=== PATIENT | female | born 1965 | race Caucasian/White ===

== ENCOUNTER 2018-11-28 15:19 | Emergency (ER) | payer MEDICAID, OTHER ==
[~2018-11-28] VITALS: Ht 167.6 cm; Wt 87.1 kg
[2018-11-28 16:44] VITALS: BP 169/85
[2018-11-28] MEDS ORDERED: methylPREDNISolone SOD SUCC 125 MG/2 ML VL IM ONE (17:15)
[2018-11-28] MEDS ORDERED: cefTRIAXone SOD 1,000 MG VL IM ONE (17:15)
== END 2018-11-28 18:18 | disposition home or self-care (01) ==
LOC: ER 15:28
DX: S76.011A Strain of muscle, fascia and tendon of right hip, initial encounter (principal); T78.40XA Allergy, unspecified, initial encounter; F17.210 Nicotine dependence, cigarettes, uncomplicated; X58.XXXA Exposure to other specified factors, initial encounter; W18.39XA Other fall on same level, initial encounter; Y93.89 Activity, other specified; Y99.8 Other external cause status; Y92.89 Other specified places as the place of occurrence of the external cause
CPT/HCPCS: 73502; 96372; 99283; J0696; J2930

== ENCOUNTER 2022-04-26 18:44 | Inpatient (IN) | payer MEDICAID ==
[~2022-04-26] VITALS: Ht 167.6 cm; Wt 77.1 kg
[2022-04-26] MEDS ORDERED: ASPirin 81 mg TAB PO ONE (19:15)
[2022-04-26] MEDS ORDERED: ONDANSETRON HCL 4 MG/2 ML VIAL IV ONE (19:15)
[2022-04-26] MEDS ORDERED: SODIUM CHLORIDE 0.9% 500 ML IV ONE (19:15)
[2022-04-26] MEDS: ALBUTEROL SULF 2.5 MG/0.5ML(0.5%) NEB SOLN HHN ONE ×2 (19:29→20:18)
[2022-04-26] MEDS: IPRATROPIUM BROM 0.5 MG/2.5ML INH SOL HHN ONE ×2 (19:29→20:18)
[2022-04-26] MEDS ORDERED: CLOPIDOGREL BISULFATE 75 MG TAB PO ONE (19:45)
[2022-04-26] MEDS ORDERED: CLOPIDOGREL 300 MG TAB ONE (19:48)
[2022-04-26 20:08] LABS: Basophils # (auto) 0.1 10 ^3/uL (0-0.2); Basophils % (auto) 0.5 % (0.0-2.0); Eosinophils # (auto) 0 10 ^3/uL (0-0.8); Eosinophils % (auto) 0.3 % (0.0-7.0); Hematocrit 50.6 % (36.0-46.0); Lymphocytes # (auto) 2.8 10 ^3/uL (0.4-5.4); Lymphocytes % (auto) 25.5 % (10.0-50.0); Mean Corpuscular Hemoglobin 31.9 pg (28.0-32.0); Mean Corpuscular Hgb Conc. 31.7 g/dL (32.0-36.0); Mean Corpuscular Volume 100.7 fL (80.0-100.0); Monocytes # (auto) 0.6 10 ^3/uL (0-1.3); Neutrophils # (auto) 7.6 10 ^3/uL (1.6-8.6); Neutrophils % (auto) 68.7 % (37.0-80.0); Red Blood Cells 5.03 10^6/uL (4.0-5.20); Red Cell Distribution Width 13.1 % (11.8-14.3); White Blood Cell 11.1 10^3/uL (4.4-10.8)
[2022-04-26] MEDS ORDERED: ANGIOMAX 250 MG VIAL IV ONE (20:09)
[2022-04-26] MEDS ORDERED: fentaNYL CITRATE 100 MCG/2 ML VL ONE (20:09)
[2022-04-26] MEDS ORDERED: SODIUM CHL 0.9% 50 ML ONE (20:09)
[2022-04-26] MEDS ORDERED: MIDAZOLAM HCL 2MG/2ML 2ml VIAL (1mg/ml) ONE ×2 (20:09→21:20)
[2022-04-26] MEDS ORDERED: IOHEXOL 350 MG/ML 100ML IJ ONE ×2 (20:10→21:10)
[2022-04-26] MEDS ORDERED: LIDOCAINE 2%HCL (LOCAL ANESTH.) INJ 20ML MDV ONE (20:10)
[2022-04-26] MEDS ORDERED: VERAPAMIL 2.5MG/ML INJ 2ML VIAL IV ONE (20:13)
[2022-04-26] MEDS ORDERED: HEPARIN SODIUM (PORCINE) 5000 UNITS/ML 1ML VIAL ONE (20:14)
[2022-04-26 20:15] LABS: Calcium 9.1 mg/dL (8.5-10.1); Potassium 4.7 mmol/L (3.5-5.1)
[2022-04-26 20:18] LABS: Lactic Acid w/Reflex 6.4 mmol/L (0.4-2.0)
[2022-04-26 20:23] LABS: Bilirubin, Total 1.2 mg/dL (0.2-1.0); INR 0.98 (0.9-1.15); Partial Thromboplastin Time 25.9 sec (24.6-33.4); Total Protein 6.2 g/dL (6.4-8.2)
[2022-04-26] MEDS ORDERED: PHENYLEPHRINE IV 250 ML IV ONE (20:40)
[2022-04-26] MEDS ORDERED: InsuLIN REG 1unit/0.01ml Soln (100units/ml) ONE (20:52)
[2022-04-26] MEDS ORDERED: SODIUM BICARBONATE 8.4 % INJ 50ML VIAL IV ONE (20:54)
[2022-04-26] MEDS ORDERED: MIDAZOLAM DRIP 50 mg/50mL 50 ML IV ONE (21:03)
[2022-04-26] MEDS ORDERED: fentaNYL Drip 2500mCg/250mlNS 250 ML IV ONE (21:06)
[2022-04-26] MEDS: HEPARIN DRIP/D5W 100UNITS/ML 250 ML IV SCH (21:30)
[2022-04-26] MEDS ORDERED: ONDANSETRON HCL 4 MG/2 ML VIAL IV PRN (21:30)
[2022-04-26] MEDS ORDERED: DEXTROSE (50%) 50ML SYRG IV PRN ×2 (21:30→22:00)
[2022-04-26] MEDS ORDERED: TEMAZEPAM 15 MG CAP PO PRN (21:30)
[2022-04-26] MEDS ORDERED: DOCUSATE SOD 100 MG CAP PO PRN (21:30)
[2022-04-26] MEDS ORDERED: VANCOMYCIN 1GM/250ML 250 ML IV ONE (21:34)
[2022-04-26] MEDS ORDERED: NITROGLYCERIN 0.4 MG SL TAB SL PRN (22:00)
[2022-04-26] MEDS ORDERED: InsuLIN REG 1unit/0.01ml Soln (100units/ml) SC SCH (22:00)
[2022-04-26] MEDS: FAMOTIDINE (10MG/ML) 2ML VL IV SCH (22:00)
[2022-04-26] MEDS ORDERED: MORPHINE SULFATE INJ 2 MG/ml SYRG IV PRN (22:00)
[2022-04-26 22:51] VITALS: BP 72/44
[2022-04-26] MEDS ORDERED: VASOPRESSIN 20 UNIT/ML ONE (23:11)
[2022-04-26 23:29] LABS: Basophils # (auto) 0 10 ^3/uL (0-0.2); Basophils % (auto) 0.2 % (0.0-2.0); Eosinophils # (auto) 0 10 ^3/uL (0-0.8); Hematocrit 48.1 % (36.0-46.0); Hemoglobin 15.3 g/dL (12.2-16.2); Lymphocytes # (auto) 1.8 10 ^3/uL (0.4-5.4); Lymphocytes % (auto) 10.9 % (10.0-50.0); Mean Corpuscular Hemoglobin 31.8 pg (28.0-32.0); Mean Corpuscular Hgb Conc. 31.8 g/dL (32.0-36.0); Mean Corpuscular Volume 100.1 fL (80.0-100.0); Monocytes # (auto) 0.8 10 ^3/uL (0-1.3); Monocytes % (auto) 4.8 % (0.0-12.0); Neutrophils # (auto) 14.1 10 ^3/uL (1.6-8.6); Neutrophils % (auto) 84.1 % (37.0-80.0); Nucleated Red Blood Cells % 0.1 %; Red Blood Cells 4.81 10^6/uL (4.0-5.20); Red Cell Distribution Width 13.1 % (11.8-14.3); White Blood Cell 16.8 10^3/uL (4.4-10.8)
[2022-04-27] VITALS (103 sets, daily range): BP systolic 76–121; BP diastolic 53–92
[2022-04-27] MEDS ORDERED: InsuLIN REG 1unit/0.01ml Soln (100units/ml) SC SCH
[2022-04-27] MEDS ORDERED: ACCU-CHEK COMFORT CURVE STRIP VI SCH ×2
[2022-04-27] MEDS ORDERED: InsuLIN R (HUMAN) 100 UNITS in SODIUM CHL 0.9% 99 ML IV SCH ×2
[2022-04-27 00:02] LABS: INR 3.4 (0.9-1.15)
[2022-04-27 00:14] LABS: Partial Thromboplastin Time 129.1 sec (24.6-33.4)
[2022-04-27] MEDS: SODIUM CHLORIDE 0.9% 1,000 ML IV SCH ×2 (00:51→18:50)
[2022-04-27] MEDS: ALBUMIN 25% 100 ML IV SCH ×3 (01:17→13:33)
[2022-04-27] MEDS: fentaNYL Drip 2500mCg/250mlNS 250 ML IV SCH (01:19)
[2022-04-27] MEDS: MIDAZOLAM DRIP 50 mg/50mL 50 ML IV SCH ×2 (01:21→22:00)
[2022-04-27] MEDS: PHENYLEPHRINE IV 250 ML IV SCH ×3 (01:21→14:40)
[2022-04-27] MEDS: ACCU-CHEK COMFORT CURVE STRIP VI SCH ×11 (01:24→20:14)
[2022-04-27] MEDS ORDERED: DEXTROSE (50%) 50ML SYRG IV PRN ×3 (02:00→14:15)
[2022-04-27] MEDS: NOREPINEPHRINE 8 MG/250ML KIT 250 ML IV SCH (02:21)
[2022-04-27] MEDS: InsuLIN R (HUMAN) 100 UNITS in SODIUM CHL 0.9% 99 ML IV SCH ×2 (02:25→09:07)
[2022-04-27 04:55] LABS: Basophils # (auto) 0 10 ^3/uL (0-0.2); Basophils % (auto) 0.3 % (0.0-2.0); Eosinophils # (auto) 0 10 ^3/uL (0-0.8); Eosinophils % (auto) 0.1 % (0.0-7.0); Hematocrit 45.9 % (36.0-46.0); Lymphocytes # (auto) 1.2 10 ^3/uL (0.4-5.4); Lymphocytes % (auto) 8.8 % (10.0-50.0); Mean Corpuscular Hemoglobin 31.8 pg (28.0-32.0); Mean Corpuscular Hgb Conc. 32.6 g/dL (32.0-36.0); Mean Corpuscular Volume 97.5 fL (80.0-100.0); Monocytes # (auto) 0.6 10 ^3/uL (0-1.3); Monocytes % (auto) 4.4 % (0.0-12.0); Neutrophils # (auto) 11.8 10 ^3/uL (1.6-8.6); Neutrophils % (auto) 86.4 % (37.0-80.0); Nucleated Red Blood Cells % 0.1 %; Red Blood Cells 4.71 10^6/uL (4.0-5.20); Red Cell Distribution Width 12.8 % (11.8-14.3); White Blood Cell 13.7 10^3/uL (4.4-10.8)
[2022-04-27 05:11] LABS: Albumin 3.1 g/dL (3.4-5.0); Calcium 7.4 mg/dL (8.5-10.1); Potassium 3.6 mmol/L (3.5-5.1)
[2022-04-27 05:12] LABS: INR 1.46 (0.9-1.15); Partial Thromboplastin Time 51.3 sec (24.6-33.4)
[2022-04-27 05:20] LABS: Bilirubin, Total 1.7 mg/dL (0.2-1.0); Total Protein 5.5 g/dL (6.4-8.2)
[2022-04-27] MEDS: HEPARIN DRIP/D5W 100UNITS/ML 250 ML IV SCH (05:50)
[2022-04-27] MEDS ORDERED: IPRATROPIUM BROM 0.5 MG/2.5ML INH SOL ONE (06:12)
[2022-04-27] MEDS ORDERED: ALBUTEROL SULF 2.5 MG/0.5ML(0.5%) NEB SOLN ONE (06:12)
[2022-04-27] MEDS: ASPirin 81 mg TAB PO SCH (09:41)
[2022-04-27] MEDS: FAMOTIDINE (10MG/ML) 2ML VL IV SCH (09:41)
[2022-04-27] MEDS ORDERED: PANTOPRAZOLE 40 MG/10 ML VIAL INJ IV ONE (10:00)
[2022-04-27] MEDS ORDERED: CLOPIDOGREL BISULFATE 75 MG TAB PO ONE (10:00)
[2022-04-27] MEDS ORDERED: OPTISON 3ml Vial for INJ IV ONE (10:57)
[2022-04-27 11:00] LABS: Basophils # (auto) 0 10 ^3/uL (0-0.2); Basophils % (auto) 0.3 % (0.0-2.0); Eosinophils # (auto) 0 10 ^3/uL (0-0.8); Eosinophils % (auto) 0.1 % (0.0-7.0); Hematocrit 42.4 % (36.0-46.0); Hemoglobin 13.9 g/dL (12.2-16.2); Lymphocytes # (auto) 2.3 10 ^3/uL (0.4-5.4); Lymphocytes % (auto) 18.7 % (10.0-50.0); Mean Corpuscular Hemoglobin 31.4 pg (28.0-32.0); Mean Corpuscular Hgb Conc. 32.9 g/dL (32.0-36.0); Mean Corpuscular Volume 95.5 fL (80.0-100.0); Monocytes # (auto) 1.1 10 ^3/uL (0-1.3); Monocytes % (auto) 9.5 % (0.0-12.0); Neutrophils # (auto) 8.7 10 ^3/uL (1.6-8.6); Neutrophils % (auto) 71.4 % (37.0-80.0); Red Blood Cells 4.44 10^6/uL (4.0-5.20); Red Cell Distribution Width 12.6 % (11.8-14.3); White Blood Cell 12.1 10^3/uL (4.4-10.8)
[2022-04-27] MEDS ORDERED: INSULIN LANTUS (GLARGINE) 1 /0.01ml (100units/ml) SC ONE (11:45)
[2022-04-27] MEDS ORDERED: EPINEPHrine HCL 1 MG/10 ML SYRG IV ONE (12:44)
[2022-04-27] MEDS ORDERED: ATROPINE SULF 1 MG/10ml SYR IV ONE (12:46)
[2022-04-27] MEDS ORDERED: SODIUM BICARBONATE 8.4% INJ 50ML SYRINGE IV ONE (12:56)
[2022-04-27 13:14] LABS: INR 1.42 (0.9-1.15); Partial Thromboplastin Time 54.6 sec (24.6-33.4)
[2022-04-27 15:54] LABS: Alcohol, Urine < 3.0 mg/dL (0-10); Amphetamine Screen, Urine POSITIVE (NEGATIVE); Barbiturate Scree,Urine NEGATIVE (NEGATIVE); Benzodiazephine Screen, Urine POSITIVE (NEGATIVE); Cannabinoid Screen, Urine NEGATIVE (NEGATIVE); Cocaine Screen, Urine NEGATIVE (NEGATIVE); Opiate Scree,Urine NEGATIVE (NEGATIVE); Phencyclidine Screen, Urine NEGATIVE (NEGATIVE)
[2022-04-27] MEDS: InsuLIN REG 1unit/0.01ml Soln (100units/ml) SC SCH ×2 (16:21→20:00)
[2022-04-27 18:59] LABS: INR 1.5 (0.9-1.15)
[2022-04-27] MEDS ORDERED: VANCOMYCIN PER PHARMACY 0 MG IV SCH (20:45)
[2022-04-27] MEDS ORDERED: VANCOMYCIN 1GM/250ML 250 ML IV ONE (21:00)
[2022-04-27] MEDS ORDERED: cefTRIAXone 1GM/50ML D5W 50 ML IV ONE (21:00)
[2022-04-28] VITALS (105 sets, daily range): BP systolic 92–126; BP diastolic 61–77
[2022-04-28] MEDS: ACCU-CHEK COMFORT CURVE STRIP VI SCH ×6 (00:23→20:00)
[2022-04-28] MEDS: InsuLIN REG 1unit/0.01ml Soln (100units/ml) SC SCH ×6 (00:30→20:57)
[2022-04-28 01:01] LABS: INR 1.46 (0.9-1.15); Partial Thromboplastin Time 53.2 sec (24.6-33.4)
[2022-04-28] MEDS: NOREPINEPHRINE 8 MG/250ML KIT 250 ML IV SCH (03:50)
[2022-04-28 04:22] LABS: Basophils # (auto) 0.1 10 ^3/uL (0-0.2); Basophils % (auto) 0.6 % (0.0-2.0); Eosinophils # (auto) 0 10 ^3/uL (0-0.8); Eosinophils % (auto) 0.2 % (0.0-7.0); Hematocrit 36.9 % (36.0-46.0); Hemoglobin 12.3 g/dL (12.2-16.2); Lymphocytes # (auto) 2.4 10 ^3/uL (0.4-5.4); Lymphocytes % (auto) 23.9 % (10.0-50.0); Mean Corpuscular Hemoglobin 31.8 pg (28.0-32.0); Mean Corpuscular Hgb Conc. 33.2 g/dL (32.0-36.0); Mean Corpuscular Volume 95.7 fL (80.0-100.0); Monocytes # (auto) 0.5 10 ^3/uL (0-1.3); Monocytes % (auto) 5.3 % (0.0-12.0); Neutrophils # (auto) 6.9 10 ^3/uL (1.6-8.6); Nucleated Red Blood Cells % 0.4 %; Red Blood Cells 3.86 10^6/uL (4.0-5.20); Red Cell Distribution Width 12.7 % (11.8-14.3); White Blood Cell 9.9 10^3/uL (4.4-10.8)
[2022-04-28 04:43] LABS: Albumin 3.3 g/dL (3.4-5.0); Anion Gap 11 (5-15); BUN/Creatinine Ratio 10.2; Blood Urea Nitrogen 25 mg/dL (7-18); Calcium 7.6 mg/dL (8.5-10.1); Carbon Dioxide 23 mmol/L (21-32); Chloride 107 mmol/L (98-107); GFR African American 26 mL/min; GFR Non-African American 21 mL/min; Glucose 214 mg/dL (74-106); Potassium 3.8 mmol/L (3.5-5.1); Sodium 141 mmol/L (136-145)
[2022-04-28 04:52] LABS: Alkaline Phosphatase 111 U/L (45-117); Bilirubin, Total 1.5 mg/dL (0.2-1.0); Total Protein 5.6 g/dL (6.4-8.2)
[2022-04-28 05:17] LABS: Alanine Aminotransferase 4968 U/L (13-56)
[2022-04-28 05:50] LABS: Aspartate Aminotransferase > 2002 U/L (15-37)
[2022-04-28] MEDS: SODIUM CHLORIDE 0.9% 1,000 ML IV SCH ×2 (07:08→08:00)
[2022-04-28] MEDS: PHENYLEPHRINE IV 250 ML IV SCH ×2 (07:20→15:40)
[2022-04-28] MEDS: HEPARIN DRIP/D5W 100UNITS/ML 250 ML IV SCH (07:37)
[2022-04-28 08:27] LABS: INR 1.46 (0.9-1.15); Partial Thromboplastin Time 52.7 sec (24.6-33.4)
[2022-04-28] MEDS: ASPirin 81 mg TAB PO SCH (10:00)
[2022-04-28] MEDS: FAMOTIDINE (10MG/ML) 2ML VL IV SCH (10:21)
[2022-04-28] MEDS: cefTRIAXone 1GM/50ML D5W 50 ML IV SCH (10:21)
[2022-04-28] MEDS: INSULIN LANTUS (GLARGINE) 1 /0.01ml (100units/ml) SC SCH (10:23)
[2022-04-28] MEDS ORDERED: VANCOMYCIN 1GM/250ML 250 ML IV ONE (12:00)
[2022-04-28 14:43] LABS: INR 1.51 (0.9-1.15); Partial Thromboplastin Time 63.9 sec (24.6-33.4)
[2022-04-28] MEDS ORDERED: BUMETANIDE 2.5mg/10ml (0.25 mg/ml) INJ IV ONE (16:00)
[2022-04-28] MEDS: SOD CHL 0.45% 1,000 ML IV SCH (16:55)
[2022-04-28] MEDS: fentaNYL Drip 2500mCg/250mlNS 250 ML IV SCH (22:00)
[2022-04-29] VITALS (106 sets, daily range): BP systolic 88–126; BP diastolic 56–82
[2022-04-29] MEDS: fentaNYL Drip 2500mCg/250mlNS 250 ML IV SCH ×2 (00:56→22:00)
[2022-04-29] MEDS: InsuLIN REG 1unit/0.01ml Soln (100units/ml) SC SCH ×6 (00:58→20:00)
[2022-04-29] MEDS: NOREPINEPHRINE 8 MG/250ML KIT 250 ML IV SCH (01:00)
[2022-04-29] MEDS: ACCU-CHEK COMFORT CURVE STRIP VI SCH ×6 (04:20→20:38)
[2022-04-29] MEDS: SOD CHL 0.45% 1,000 ML IV SCH ×2 (04:22→17:02)
[2022-04-29 05:27] LABS: Albumin 3.1 g/dL (3.4-5.0); BUN/Creatinine Ratio 13.4; Calcium 7.7 mg/dL (8.5-10.1); Phosphorus 4.3 mg/dL (2.5-4.90); Potassium 3.2 mmol/L (3.5-5.1)
[2022-04-29 05:51] LABS: INR 1.43 (0.9-1.15); Partial Thromboplastin Time 40.2 sec (24.6-33.4)
[2022-04-29] MEDS ORDERED: HEPARIN DRIP/D5W 100UNITS/ML 250 ML IV SCH (06:30)
[2022-04-29] MEDS: HEPARIN DRIP/D5W 100UNITS/ML 250 ML IV SCH (06:34)
[2022-04-29 07:38] LABS: Basophils # (auto) 0.1 10 ^3/uL (0-0.2); Basophils % (auto) 0.7 % (0.0-2.0); Eosinophils # (auto) 0 10 ^3/uL (0-0.8); Eosinophils % (auto) 0.4 % (0.0-7.0); Hematocrit 40.1 % (36.0-46.0); Hemoglobin 13.7 g/dL (12.2-16.2); Lymphocytes # (auto) 1.4 10 ^3/uL (0.4-5.4); Lymphocytes % (auto) 16.6 % (10.0-50.0); Mean Corpuscular Hemoglobin 32.6 pg (28.0-32.0); Mean Corpuscular Hgb Conc. 34.2 g/dL (32.0-36.0); Mean Corpuscular Volume 95.2 fL (80.0-100.0); Monocytes # (auto) 0.3 10 ^3/uL (0-1.3); Monocytes % (auto) 3.3 % (0.0-12.0); Neutrophils # (auto) 6.5 10 ^3/uL (1.6-8.6); Nucleated Red Blood Cells % 1.9 %; Red Blood Cells 4.21 10^6/uL (4.0-5.20); Red Cell Distribution Width 12.9 % (11.8-14.3); White Blood Cell 8.2 10^3/uL (4.4-10.8)
[2022-04-29] MEDS: PHENYLEPHRINE IV 250 ML IV SCH ×3 (08:20→16:40)
[2022-04-29] MEDS: cefTRIAXone 1GM/50ML D5W 50 ML IV SCH (08:32)
[2022-04-29] MEDS: ASPirin 81 mg TAB PO SCH (08:33)
[2022-04-29] MEDS: POTASSIUM CHL 20MEQ/100ML 100 ML IV SCH ×2 (08:33→10:45)
[2022-04-29] MEDS: FAMOTIDINE (10MG/ML) 2ML VL IV SCH (08:33)
[2022-04-29] MEDS: INSULIN LANTUS (GLARGINE) 1 /0.01ml (100units/ml) SC SCH (09:39)
[2022-04-29] MEDS ORDERED: ACETAMINOPHEN 650 mg PER 20.3 mL UD GT PRN (12:00)
[2022-04-29 12:22] LABS: INR 1.52 (0.9-1.15); Partial Thromboplastin Time 59.9 sec (24.6-33.4)
[2022-04-29] MEDS: IBUPROFEN 800 MG TAB PO PRN (13:22)
[2022-04-29] MEDS ORDERED: VANCOMYCIN 1GM/250ML 250 ML IV ONE (15:00)
[2022-04-29] MEDS ORDERED: VANCOMYCIN 500MG/100ML D5W 100 ML IV SCH (15:00)
[2022-04-29] MEDS ORDERED: VANCOMYCIN 500MG/100ML D5W 100 ML IV ONE (15:15)
[2022-04-29 18:52] LABS: INR 1.55 (0.9-1.15)
[2022-04-29 19:04] LABS: Partial Thromboplastin Time 74.2 sec (24.6-33.4)
[2022-04-29] MEDS: MIDAZOLAM DRIP 50 mg/50mL 50 ML IV SCH ×2 (22:00)
[2022-04-30] VITALS (106 sets, daily range): BP systolic 101–127; BP diastolic 61–86
[2022-04-30] MEDS: NOREPINEPHRINE 8 MG/250ML KIT 250 ML IV SCH
[2022-04-30] MEDS: SOD CHL 0.45% 1,000 ML IV SCH ×2 (00:02→16:35)
[2022-04-30] MEDS: ACCU-CHEK COMFORT CURVE STRIP VI SCH ×7 (00:03→23:47)
[2022-04-30 00:59] LABS: INR 1.44 (0.9-1.15); Partial Thromboplastin Time 67.6 sec (24.6-33.4)
[2022-04-30] MEDS: PHENYLEPHRINE IV 250 ML IV SCH ×3 (01:00→16:35)
[2022-04-30 04:09] LABS: Basophils # (auto) 0.1 10 ^3/uL (0-0.2); Basophils % (auto) 0.7 % (0.0-2.0); Eosinophils # (auto) 0.1 10 ^3/uL (0-0.8); Eosinophils % (auto) 1.2 % (0.0-7.0); Hematocrit 38.6 % (36.0-46.0); Hemoglobin 13.3 g/dL (12.2-16.2); Lymphocytes # (auto) 1.4 10 ^3/uL (0.4-5.4); Lymphocytes % (auto) 15.6 % (10.0-50.0); Mean Corpuscular Hemoglobin 32.9 pg (28.0-32.0); Mean Corpuscular Hgb Conc. 34.5 g/dL (32.0-36.0); Mean Corpuscular Volume 95.3 fL (80.0-100.0); Monocytes # (auto) 0.6 10 ^3/uL (0-1.3); Monocytes % (auto) 6.3 % (0.0-12.0); Neutrophils # (auto) 6.9 10 ^3/uL (1.6-8.6); Neutrophils % (auto) 76.2 % (37.0-80.0); Nucleated Red Blood Cells % 1.5 %; Red Blood Cells 4.05 10^6/uL (4.0-5.20); Red Cell Distribution Width 12.9 % (11.8-14.3); White Blood Cell 9.1 10^3/uL (4.4-10.8)
[2022-04-30 04:29] LABS: Albumin 2.7 g/dL (3.4-5.0); BUN/Creatinine Ratio 19.9; Calcium 7.4 mg/dL (8.5-10.1); Phosphorus 3.8 mg/dL (2.5-4.90); Potassium 3.3 mmol/L (3.5-5.1)
[2022-04-30] MEDS: InsuLIN REG 1unit/0.01ml Soln (100units/ml) SC SCH ×7 (04:38→23:48)
[2022-04-30] MEDS: cefTRIAXone 1GM/50ML D5W 50 ML IV SCH (09:01)
[2022-04-30] MEDS: FAMOTIDINE (10MG/ML) 2ML VL IV SCH (09:01)
[2022-04-30] MEDS: ASPirin 81 mg TAB PO SCH (09:01)
[2022-04-30] MEDS: INSULIN LANTUS (GLARGINE) 1 /0.01ml (100units/ml) SC SCH (09:02)
[2022-04-30] MEDS: VANCOMYCIN 1GM/250ML 250 ML IV SCH (12:38)
[2022-04-30] MEDS ORDERED: CLOPIDOGREL 300 MG TAB PO ONE (13:30)
[2022-04-30] MEDS ORDERED: ALBUMIN 25% 50 ML IV ONE (17:30)
[2022-04-30] MEDS: POTASSIUM CHL 20MEQ/100ML 100 ML IV SCH ×2 (18:29→22:36)
[2022-04-30] MEDS ORDERED: FUROSEMIDE 20 MG/2 ML VIAL IV ONE (18:30)
[2022-04-30 20:39] LABS: Hepatitis A Ab IgM Negative; Hepatitis B Core IgM Negative; Hepatitis C Antibody Negative (Negative)
[2022-04-30] MEDS: MIDAZOLAM DRIP 50 mg/50mL 50 ML IV SCH (22:00)
[2022-04-30] MEDS: fentaNYL Drip 2500mCg/250mlNS 250 ML IV SCH (22:00)
[2022-05-01] VITALS (103 sets, daily range): BP systolic 80–158; BP diastolic 51–99
[2022-05-01] MEDS: NOREPINEPHRINE 8 MG/250ML KIT 250 ML IV SCH
[2022-05-01] MEDS: fentaNYL Drip 2500mCg/250mlNS 250 ML IV SCH (01:06)
[2022-05-01] MEDS: PHENYLEPHRINE IV 250 ML IV SCH ×3 (02:00→16:12)
[2022-05-01 03:46] LABS: Basophils # (auto) 0.1 10 ^3/uL (0-0.2); Basophils % (auto) 0.9 % (0.0-2.0); Eosinophils # (auto) 0.1 10 ^3/uL (0-0.8); Eosinophils % (auto) 1.3 % (0.0-7.0); Hematocrit 37.7 % (36.0-46.0); Hemoglobin 12.7 g/dL (12.2-16.2); Lymphocytes # (auto) 1.1 10 ^3/uL (0.4-5.4); Lymphocytes % (auto) 14.1 % (10.0-50.0); Mean Corpuscular Hemoglobin 32.1 pg (28.0-32.0); Mean Corpuscular Hgb Conc. 33.6 g/dL (32.0-36.0); Mean Corpuscular Volume 95.4 fL (80.0-100.0); Monocytes # (auto) 0.8 10 ^3/uL (0-1.3); Monocytes % (auto) 10.9 % (0.0-12.0); Neutrophils # (auto) 5.4 10 ^3/uL (1.6-8.6); Neutrophils % (auto) 72.8 % (37.0-80.0); Nucleated Red Blood Cells % 1.5 %; Red Blood Cells 3.95 10^6/uL (4.0-5.20); Red Cell Distribution Width 12.8 % (11.8-14.3); White Blood Cell 7.5 10^3/uL (4.4-10.8)
[2022-05-01] MEDS: InsuLIN REG 1unit/0.01ml Soln (100units/ml) SC SCH ×5 (04:00→20:00)
[2022-05-01 04:04] LABS: Calcium 8.3 mg/dL (8.5-10.1); Magnesium 2.1 mg/dL (1.6-2.6); Potassium 3.6 mmol/L (3.5-5.1)
[2022-05-01 04:07] LABS: BUN/Creatinine Ratio 23.9
[2022-05-01 04:08] LABS: INR 1.28 (0.9-1.15); Partial Thromboplastin Time 34.2 sec (24.6-33.4)
[2022-05-01] MEDS: ACCU-CHEK COMFORT CURVE STRIP VI SCH ×5 (04:32→20:00)
[2022-05-01] MEDS: SOD CHL 0.45% 1,000 ML IV SCH (06:09)
[2022-05-01] MEDS: cefTRIAXone 1GM/50ML D5W 50 ML IV SCH (08:32)
[2022-05-01] MEDS: FAMOTIDINE (10MG/ML) 2ML VL IV SCH (09:23)
[2022-05-01] MEDS: ASPirin 81 mg TAB PO SCH (09:23)
[2022-05-01] MEDS: CLOPIDOGREL BISULFATE 75 MG TAB PO SCH (09:23)
[2022-05-01] MEDS: ENOXAPARIN SOD 30 MG/0.3 ML SYRINGE SC SCH (09:24)
[2022-05-01] MEDS: INSULIN LANTUS (GLARGINE) 1 /0.01ml (100units/ml) SC SCH (09:26)
[2022-05-01] MEDS: VANCOMYCIN 1GM/250ML 250 ML IV SCH (12:29)
[2022-05-01] MEDS: MIDAZOLAM DRIP 50 mg/50mL 50 ML IV SCH (22:00)
[2022-05-02] VITALS (65 sets, daily range): BP systolic 89–140; BP diastolic 7–86
[2022-05-02] MEDS: NOREPINEPHRINE 8 MG/250ML KIT 250 ML IV SCH
[2022-05-02] MEDS: ACCU-CHEK COMFORT CURVE STRIP VI SCH ×6 (00:02→20:00)
[2022-05-02] MEDS: MIDAZOLAM DRIP 50 mg/50mL 50 ML IV SCH ×3 (00:03→05:44)
[2022-05-02] MEDS: fentaNYL Drip 2500mCg/250mlNS 250 ML IV SCH (01:18)
[2022-05-02] MEDS: PHENYLEPHRINE IV 250 ML IV SCH ×2 (03:00→11:20)
[2022-05-02] MEDS: InsuLIN REG 1unit/0.01ml Soln (100units/ml) SC SCH ×6 (04:00→20:00)
[2022-05-02 04:08] LABS: Basophils # (auto) 0.1 10 ^3/uL (0-0.2); Basophils % (auto) 0.6 % (0.0-2.0); Eosinophils # (auto) 0.1 10 ^3/uL (0-0.8); Eosinophils % (auto) 0.9 % (0.0-7.0); Hematocrit 38.1 % (36.0-46.0); Hemoglobin 12.8 g/dL (12.2-16.2); Lymphocytes # (auto) 1.5 10 ^3/uL (0.4-5.4); Lymphocytes % (auto) 18.3 % (10.0-50.0); Mean Corpuscular Hemoglobin 32.2 pg (28.0-32.0); Mean Corpuscular Hgb Conc. 33.7 g/dL (32.0-36.0); Mean Corpuscular Volume 95.7 fL (80.0-100.0); Monocytes # (auto) 1.1 10 ^3/uL (0-1.3); Monocytes % (auto) 12.8 % (0.0-12.0); Neutrophils # (auto) 5.7 10 ^3/uL (1.6-8.6); Neutrophils % (auto) 67.4 % (37.0-80.0); Nucleated Red Blood Cells % 0.6 %; Red Blood Cells 3.99 10^6/uL (4.0-5.20); Red Cell Distribution Width 12.7 % (11.8-14.3); White Blood Cell 8.4 10^3/uL (4.4-10.8)
[2022-05-02 04:21] LABS: BUN/Creatinine Ratio 31.2; Calcium 8.2 mg/dL (8.5-10.1); Potassium 3.6 mmol/L (3.5-5.1)
[2022-05-02] MEDS: FAMOTIDINE (10MG/ML) 2ML VL IV SCH (09:23)
[2022-05-02] MEDS: ENOXAPARIN SOD 30 MG/0.3 ML SYRINGE SC SCH (09:23)
[2022-05-02] MEDS: cefTRIAXone 1GM/50ML D5W 50 ML IV SCH (09:23)
[2022-05-02] MEDS: INSULIN LANTUS (GLARGINE) 1 /0.01ml (100units/ml) SC SCH (09:24)
[2022-05-02] MEDS: CLOPIDOGREL BISULFATE 75 MG TAB PO SCH (10:00)
[2022-05-02] MEDS: ASPirin 81 mg TAB PO SCH (10:00)
[2022-05-02] MEDS: VANCOMYCIN 1GM/250ML 250 ML IV SCH (11:58)
[2022-05-03] MEDS: ACCU-CHEK COMFORT CURVE STRIP VI SCH ×6 (04:00→21:50)
[2022-05-03] MEDS: InsuLIN REG 1unit/0.01ml Soln (100units/ml) SC SCH ×6 (04:44→21:50)
[2022-05-03 05:00] VITALS: BP 131/93
[2022-05-03] MEDS: MORPHINE SULFATE INJ 2 MG/ml SYRG IV PRN ×2 (05:53→21:34)
[2022-05-03 06:05] LABS: Basophils # (auto) 0.1 10 ^3/uL (0-0.2); Basophils % (auto) 0.5 % (0.0-2.0); Eosinophils # (auto) 0.1 10 ^3/uL (0-0.8); Eosinophils % (auto) 0.6 % (0.0-7.0); Hematocrit 42.5 % (36.0-46.0); Hemoglobin 13.8 g/dL (12.2-16.2); Lymphocytes # (auto) 1.2 10 ^3/uL (0.4-5.4); Lymphocytes % (auto) 9.4 % (10.0-50.0); Mean Corpuscular Hemoglobin 31.5 pg (28.0-32.0); Mean Corpuscular Hgb Conc. 32.6 g/dL (32.0-36.0); Mean Corpuscular Volume 96.8 fL (80.0-100.0); Monocytes # (auto) 1.8 10 ^3/uL (0-1.3); Monocytes % (auto) 13.7 % (0.0-12.0); Neutrophils # (auto) 9.7 10 ^3/uL (1.6-8.6); Neutrophils % (auto) 75.8 % (37.0-80.0); Nucleated Red Blood Cells % 0.1 %; Red Blood Cells 4.39 10^6/uL (4.0-5.20); White Blood Cell 12.8 10^3/uL (4.4-10.8)
[2022-05-03 06:23] LABS: Calcium 9.2 mg/dL (8.5-10.1); Potassium 3.6 mmol/L (3.5-5.1)
[2022-05-03 08:52] VITALS: BP 139/91
[2022-05-03] MEDS: ASPirin 81 mg TAB PO SCH (11:06)
[2022-05-03] MEDS: chlordiazePOXIDE HCL 25 MG CAP PO SCH ×2 (11:06→17:21)
[2022-05-03] MEDS: CLOPIDOGREL BISULFATE 75 MG TAB PO SCH (11:07)
[2022-05-03] MEDS: LORazepam 0.5 MG TAB PO PRN ×2 (11:07→20:57)
[2022-05-03] MEDS: ENOXAPARIN SOD 40 MG/0.4 ML SYRINGE SC SCH (11:08)
[2022-05-03] MEDS: INSULIN LANTUS (GLARGINE) 1 /0.01ml (100units/ml) SC SCH (11:20)
[2022-05-03] MEDS: FAMOTIDINE (10MG/ML) 2ML VL IV SCH (12:20)
[2022-05-03] MEDS: cefTRIAXone 1GM/50ML D5W 50 ML IV SCH (12:25)
[2022-05-03 13:00] VITALS: BP 134/89
[2022-05-03] MEDS ORDERED: InsuLIN REG 1unit/0.01ml Soln (100units/ml) SC SCH ×3 (17:00→22:00)
[2022-05-03 17:06] VITALS: BP 131/90
[2022-05-03] MEDS ORDERED: D5W 5% 1,000 ML IV SCH (18:15)
[2022-05-03 22:00] VITALS: BP 143/77
[2022-05-04] MEDS: chlordiazePOXIDE HCL 25 MG CAP PO SCH ×4 (00:21→18:00)
[2022-05-04 05:00] VITALS: BP 115/69
[2022-05-04 06:07] LABS: Basophils # (auto) 0.1 10 ^3/uL (0-0.2); Basophils % (auto) 0.7 % (0.0-2.0); Eosinophils # (auto) 0.1 10 ^3/uL (0-0.8); Eosinophils % (auto) 1.7 % (0.0-7.0); Hematocrit 38.5 % (36.0-46.0); Lymphocytes # (auto) 1.3 10 ^3/uL (0.4-5.4); Lymphocytes % (auto) 14.7 % (10.0-50.0); Mean Corpuscular Hemoglobin 32.3 pg (28.0-32.0); Mean Corpuscular Hgb Conc. 33.7 g/dL (32.0-36.0); Monocytes # (auto) 1.2 10 ^3/uL (0-1.3); Neutrophils # (auto) 6.2 10 ^3/uL (1.6-8.6); Neutrophils % (auto) 69.9 % (37.0-80.0); Nucleated Red Blood Cells % 0.1 %; Red Blood Cells 4.01 10^6/uL (4.0-5.20); Red Cell Distribution Width 13.3 % (11.8-14.3); White Blood Cell 8.9 10^3/uL (4.4-10.8)
[2022-05-04 06:24] LABS: Calcium 8.8 mg/dL (8.5-10.1)
[2022-05-04 06:26] LABS: BUN/Creatinine Ratio 27.9
[2022-05-04 06:31] LABS: Potassium 2.9 mmol/L (3.5-5.1)
[2022-05-04] MEDS: InsuLIN REG 1unit/0.01ml Soln (100units/ml) SC SCH ×4 (07:00→22:00)
[2022-05-04] MEDS ORDERED: POTASSIUM CHL 20MEQ/100ML 100 ML IV ONE (07:00)
[2022-05-04] MEDS: ACCU-CHEK COMFORT CURVE STRIP VI SCH ×4 (07:05→22:20)
[2022-05-04 09:00] VITALS: BP 157/81
[2022-05-04] MEDS: ASPirin 81 mg TAB PO SCH (09:34)
[2022-05-04] MEDS: FAMOTIDINE (10MG/ML) 2ML VL IV SCH (09:34)
[2022-05-04] MEDS: cefTRIAXone 1GM/50ML D5W 50 ML IV SCH (09:34)
[2022-05-04] MEDS: CLOPIDOGREL BISULFATE 75 MG TAB PO SCH (09:34)
[2022-05-04] MEDS: ENOXAPARIN SOD 40 MG/0.4 ML SYRINGE SC SCH (09:38)
[2022-05-04] MEDS: LORazepam 0.5 MG TAB PO PRN (09:38)
[2022-05-04] MEDS: MORPHINE SULFATE INJ 2 MG/ml SYRG IV PRN (09:38)
[2022-05-04] MEDS: INSULIN LANTUS (GLARGINE) 1 /0.01ml (100units/ml) SC SCH (09:40)
[2022-05-04] MEDS ORDERED: POTASSIUM CHLORIDE 60 MEQ, LIDOCAINE 1% (LOCAL ANESTH.) 6 ML in SODIUM CHL 0.9% 500 ML IV ONE (11:30)
[2022-05-04] MEDS: LORazepam 2MG/ML-1ML VIAL IV PRN ×3 (11:35→21:06)
[2022-05-04 13:00] VITALS: BP 114/80
[2022-05-04] MEDS ORDERED: D5W 5% 1,000 ML IV SCH (16:30)
[2022-05-04 17:00] VITALS: BP 127/84
[2022-05-04 22:00] VITALS: BP 119/76
[2022-05-04] MEDS: MUPIROCIN 2% OINT 15gm or 22gm TOP SCH (22:00)
[2022-05-04] MEDS: DEXTROSE (50%) 50ML SYRG IV PRN (22:22)
[2022-05-05] MEDS: LORazepam 2MG/ML-1ML VIAL IV PRN ×5 (01:18→23:57)
[2022-05-05 05:00] VITALS: BP 121/74
[2022-05-05] MEDS: MORPHINE SULFATE INJ 2 MG/ml SYRG IV PRN ×3 (05:02→17:12)
[2022-05-05] MEDS: chlordiazePOXIDE HCL 25 MG CAP PO SCH ×5 (06:00→23:16)
[2022-05-05] MEDS: InsuLIN REG 1unit/0.01ml Soln (100units/ml) SC SCH ×4 (06:33→22:00)
[2022-05-05] MEDS: ACCU-CHEK COMFORT CURVE STRIP VI SCH ×4 (06:33→23:14)
[2022-05-05] MEDS: DEXTROSE (50%) 50ML SYRG IV PRN ×2 (06:35→12:05)
[2022-05-05 06:38] LABS: BUN/Creatinine Ratio 17.1; Calcium 8.2 mg/dL (8.5-10.1); Potassium 3.5 mmol/L (3.5-5.1)
[2022-05-05] MEDS: CLOPIDOGREL BISULFATE 75 MG TAB PO SCH (08:18)
[2022-05-05 09:00] VITALS: BP 120/84
[2022-05-05] MEDS ORDERED: BISACODYL 10 MG RECT SUPP PR PRN (10:00)
[2022-05-05] MEDS: INSULIN LANTUS (GLARGINE) 1 /0.01ml (100units/ml) SC SCH (10:00)
[2022-05-05] MEDS: ASPirin 81 mg TAB PO SCH (11:09)
[2022-05-05] MEDS: cefTRIAXone 1GM/50ML D5W 50 ML IV SCH (11:09)
[2022-05-05] MEDS: FAMOTIDINE (10MG/ML) 2ML VL IV SCH (11:09)
[2022-05-05] MEDS: MUPIROCIN 2% OINT 15gm or 22gm TOP SCH ×2 (11:10→23:15)
[2022-05-05] MEDS: ENOXAPARIN SOD 40 MG/0.4 ML SYRINGE SC SCH (11:10)
[2022-05-05] MEDS: D5W 5% 1,000 ML IV SCH (11:40)
[2022-05-05 13:00] VITALS: BP 118/64
[2022-05-05 17:00] VITALS: BP 87/39
[2022-05-05 19:25] VITALS: BP 121/85
[2022-05-05 22:00] VITALS: BP 148/76
[2022-05-06] MEDS: D5W 5% 1,000 ML IV SCH ×2 (01:50→12:07)
[2022-05-06] MEDS: MORPHINE SULFATE INJ 2 MG/ml SYRG IV PRN ×2 (03:27→15:09)
[2022-05-06 04:43] VITALS: BP 125/68
[2022-05-06] MEDS: LORazepam 2MG/ML-1ML VIAL IV PRN ×3 (05:20→18:58)
[2022-05-06] MEDS: ACCU-CHEK COMFORT CURVE STRIP VI SCH ×4 (06:22→23:10)
[2022-05-06] MEDS: chlordiazePOXIDE HCL 25 MG CAP PO SCH ×3 (06:22→18:00)
[2022-05-06] MEDS: InsuLIN REG 1unit/0.01ml Soln (100units/ml) SC SCH ×4 (06:23→23:12)
[2022-05-06 07:02] LABS: Basophils # (auto) 0.2 10 ^3/uL (0-0.2); Basophils % (auto) 2.5 % (0.0-2.0); Eosinophils # (auto) 0.2 10 ^3/uL (0-0.8); Hematocrit 38.6 % (36.0-46.0); Hemoglobin 12.6 g/dL (12.2-16.2); Lymphocytes # (auto) 1.5 10 ^3/uL (0.4-5.4); Lymphocytes % (auto) 21.2 % (10.0-50.0); Mean Corpuscular Hemoglobin 31.3 pg (28.0-32.0); Mean Corpuscular Hgb Conc. 32.7 g/dL (32.0-36.0); Mean Corpuscular Volume 95.9 fL (80.0-100.0); Monocytes % (auto) 13.3 % (0.0-12.0); Neutrophils # (auto) 4.3 10 ^3/uL (1.6-8.6); Nucleated Red Blood Cells % 0.2 %; Red Blood Cells 4.02 10^6/uL (4.0-5.20); White Blood Cell 7.2 10^3/uL (4.4-10.8)
[2022-05-06 07:23] LABS: Potassium 3.7 mmol/L (3.5-5.1)
[2022-05-06 07:40] LABS: Albumin 2.8 g/dL (3.4-5.0); BUN/Creatinine Ratio 10.7; Bilirubin, Total 1.8 mg/dL (0.2-1.0); Calcium 8.4 mg/dL (8.5-10.1)
[2022-05-06 09:00] VITALS: BP 131/75
[2022-05-06] MEDS: INSULIN LANTUS (GLARGINE) 1 /0.01ml (100units/ml) SC SCH (10:00)
[2022-05-06] MEDS: cefTRIAXone 1GM/50ML D5W 50 ML IV SCH (10:59)
[2022-05-06] MEDS: FAMOTIDINE (10MG/ML) 2ML VL IV SCH (10:59)
[2022-05-06] MEDS: ASPirin 81 mg TAB PO SCH (11:00)
[2022-05-06] MEDS: MUPIROCIN 2% OINT 15gm or 22gm TOP SCH ×2 (11:00→23:07)
[2022-05-06] MEDS: CLOPIDOGREL BISULFATE 75 MG TAB PO SCH (11:00)
[2022-05-06] MEDS: ENOXAPARIN SOD 40 MG/0.4 ML SYRINGE SC SCH (11:02)
[2022-05-06 17:19] VITALS: BP 95/70
[2022-05-06 22:00] VITALS: BP 113/80
[2022-05-07 05:00] VITALS: BP 128/99
[2022-05-07] MEDS: LORazepam 2MG/ML-1ML VIAL IV PRN ×2 (05:37→11:18)
[2022-05-07] MEDS: chlordiazePOXIDE HCL 25 MG CAP PO SCH ×4 (06:00→17:13)
[2022-05-07] MEDS: InsuLIN REG 1unit/0.01ml Soln (100units/ml) SC SCH ×4 (07:00→22:00)
[2022-05-07] MEDS: ACCU-CHEK COMFORT CURVE STRIP VI SCH ×4 (07:00→22:00)
[2022-05-07] MEDS: cefTRIAXone 1GM/50ML D5W 50 ML IV SCH (08:54)
[2022-05-07] MEDS: MORPHINE SULFATE INJ 2 MG/ml SYRG IV PRN ×2 (08:57→18:52)
[2022-05-07 09:09] VITALS: BP 143/85
[2022-05-07] MEDS: D5W 5% 1,000 ML IV SCH ×2 (09:11→17:13)
[2022-05-07] MEDS: INSULIN LANTUS (GLARGINE) 1 /0.01ml (100units/ml) SC SCH (10:00)
[2022-05-07] MEDS: ASPirin 81 mg TAB PO SCH (11:06)
[2022-05-07] MEDS: FAMOTIDINE (10MG/ML) 2ML VL IV SCH (11:06)
[2022-05-07] MEDS: CLOPIDOGREL BISULFATE 75 MG TAB PO SCH (11:06)
[2022-05-07] MEDS: ENOXAPARIN SOD 40 MG/0.4 ML SYRINGE SC SCH (11:07)
[2022-05-07] MEDS: MUPIROCIN 2% OINT 15gm or 22gm TOP SCH ×2 (11:07→21:44)
[2022-05-07 13:00] VITALS: BP_SYST 119; BP_SYST 169; BP_DIAS 63; BP_DIAS 85
[2022-05-07 13:44] LABS: Basophils # (auto) 0.1 10 ^3/uL (0-0.2); Basophils % (auto) 0.9 % (0.0-2.0); Eosinophils # (auto) 0.1 10 ^3/uL (0-0.8); Eosinophils % (auto) 1.9 % (0.0-7.0); Hematocrit 40.2 % (36.0-46.0); Hemoglobin 13.2 g/dL (12.2-16.2); Lymphocytes # (auto) 1.5 10 ^3/uL (0.4-5.4); Lymphocytes % (auto) 22.4 % (10.0-50.0); Mean Corpuscular Hemoglobin 31.6 pg (28.0-32.0); Mean Corpuscular Hgb Conc. 32.8 g/dL (32.0-36.0); Mean Corpuscular Volume 96.1 fL (80.0-100.0); Monocytes # (auto) 0.7 10 ^3/uL (0-1.3); Monocytes % (auto) 10.8 % (0.0-12.0); Neutrophils # (auto) 4.3 10 ^3/uL (1.6-8.6); Nucleated Red Blood Cells % 0.1 %; Red Blood Cells 4.19 10^6/uL (4.0-5.20); Red Cell Distribution Width 13.5 % (11.8-14.3); White Blood Cell 6.7 10^3/uL (4.4-10.8)
[2022-05-07 14:08] LABS: Calcium 8.4 mg/dL (8.5-10.1); Potassium 3.9 mmol/L (3.5-5.1)
[2022-05-07 14:14] LABS: Albumin 2.7 g/dL (3.4-5.0); BUN/Creatinine Ratio 8.5; Bilirubin, Total 1.1 mg/dL (0.2-1.0); Total Protein 5.9 g/dL (6.4-8.2)
[2022-05-07 17:06] VITALS: BP 112/70
[2022-05-07] MEDS: Glucerna Carbsteady SHAKE Vanilla 8oz PO SCH (18:00)
[2022-05-07] MEDS: SACUBITRIL-VALSARTAN 24mg/26mg TAB PO SCH (21:44)
[2022-05-07] MEDS: CARVEDILOL 3.125 MG TAB PO SCH (21:44)
[2022-05-07 21:49] VITALS: BP 126/69
[2022-05-08] MEDS: LORazepam 2MG/ML-1ML VIAL IV PRN ×4 (00:38→20:38)
[2022-05-08] MEDS: chlordiazePOXIDE HCL 25 MG CAP PO SCH ×3 (01:09→12:00)
[2022-05-08 05:00] VITALS: BP 107/62
[2022-05-08 06:01] LABS: Basophils # (auto) 0.1 10 ^3/uL (0-0.2); Basophils % (auto) 0.6 % (0.0-2.0); Eosinophils # (auto) 0.3 10 ^3/uL (0-0.8); Eosinophils % (auto) 2.7 % (0.0-7.0); Hematocrit 43.2 % (36.0-46.0); Hemoglobin 14.2 g/dL (12.2-16.2); Lymphocytes # (auto) 2.6 10 ^3/uL (0.4-5.4); Lymphocytes % (auto) 21.2 % (10.0-50.0); Mean Corpuscular Hemoglobin 31.5 pg (28.0-32.0); Mean Corpuscular Hgb Conc. 32.8 g/dL (32.0-36.0); Mean Corpuscular Volume 96.1 fL (80.0-100.0); Monocytes # (auto) 1.3 10 ^3/uL (0-1.3); Monocytes % (auto) 10.6 % (0.0-12.0); Neutrophils # (auto) 7.9 10 ^3/uL (1.6-8.6); Neutrophils % (auto) 64.9 % (37.0-80.0); Nucleated Red Blood Cells % 0.1 %; Red Blood Cells 4.49 10^6/uL (4.0-5.20); Red Cell Distribution Width 13.5 % (11.8-14.3); White Blood Cell 12.2 10^3/uL (4.4-10.8)
[2022-05-08] MEDS: D5W 5% 1,000 ML IV SCH ×2 (06:21→07:13)
[2022-05-08] MEDS: InsuLIN REG 1unit/0.01ml Soln (100units/ml) SC SCH ×4 (06:22→22:00)
[2022-05-08] MEDS: ACCU-CHEK COMFORT CURVE STRIP VI SCH ×4 (06:23→22:00)
[2022-05-08] MEDS: DEXTROSE (50%) 50ML SYRG IV PRN (06:23)
[2022-05-08 06:26] LABS: Potassium 3.5 mmol/L (3.5-5.1)
[2022-05-08] MEDS: EMPAGLIFLOZIN 10 MG TAB PO SCH (06:26)
[2022-05-08 06:29] LABS: Albumin 2.7 g/dL (3.4-5.0); Calcium 8.6 mg/dL (8.5-10.1)
[2022-05-08 06:45] LABS: BUN/Creatinine Ratio 7.1; Bilirubin, Total 0.9 mg/dL (0.2-1.0); Total Protein 6.3 g/dL (6.4-8.2)
[2022-05-08] MEDS: Glucerna Carbsteady SHAKE Vanilla 8oz PO SCH ×2 (08:00→18:38)
[2022-05-08] MEDS: cefTRIAXone 1GM/50ML D5W 50 ML IV SCH (08:53)
[2022-05-08 09:00] VITALS: BP 117/67
[2022-05-08] MEDS: INSULIN LANTUS (GLARGINE) 1 /0.01ml (100units/ml) SC SCH (10:00)
[2022-05-08] MEDS ORDERED: POTASSIUM EFFERVESENT TAB 25 MEQ PO ONE (11:00)
[2022-05-08 12:46] VITALS: BP 105/71
[2022-05-08] MEDS: FAMOTIDINE (10MG/ML) 2ML VL IV SCH (16:04)
[2022-05-08] MEDS: ASPirin 81 mg TAB PO SCH (16:04)
[2022-05-08] MEDS: CARVEDILOL 3.125 MG TAB PO SCH ×2 (16:05→22:00)
[2022-05-08] MEDS: CLOPIDOGREL BISULFATE 75 MG TAB PO SCH (16:05)
[2022-05-08] MEDS: SACUBITRIL-VALSARTAN 24mg/26mg TAB PO SCH ×2 (16:05→22:00)
[2022-05-08] MEDS: MUPIROCIN 2% OINT 15gm or 22gm TOP SCH ×2 (16:06→22:00)
[2022-05-08] MEDS: ENOXAPARIN SOD 40 MG/0.4 ML SYRINGE SC SCH (16:08)
[2022-05-09] MEDS: HALOPERIDOL LACTATE 5 MG/ML INJ VIAL IM PRN ×3 (00:09→21:57)
[2022-05-09] MEDS: EMPAGLIFLOZIN 10 MG TAB PO SCH (06:16)
[2022-05-09] MEDS: InsuLIN REG 1unit/0.01ml Soln (100units/ml) SC SCH ×5 (06:16→21:36)
[2022-05-09] MEDS: ACCU-CHEK COMFORT CURVE STRIP VI SCH ×5 (06:17→21:55)
[2022-05-09] MEDS: D5W 5% 1,000 ML IV SCH ×2 (09:05→22:25)
[2022-05-09 09:17] VITALS: BP 142/79
[2022-05-09] MEDS: Glucerna Carbsteady SHAKE Vanilla 8oz PO SCH ×2 (09:47→18:00)
[2022-05-09] MEDS: cefTRIAXone 1GM/50ML D5W 50 ML IV SCH (09:47)
[2022-05-09] MEDS: SACUBITRIL-VALSARTAN 24mg/26mg TAB PO SCH ×2 (09:48→21:54)
[2022-05-09] MEDS: ASPirin 81 mg TAB PO SCH (09:48)
[2022-05-09] MEDS: FAMOTIDINE (10MG/ML) 2ML VL IV SCH (09:48)
[2022-05-09] MEDS: CLOPIDOGREL BISULFATE 75 MG TAB PO SCH (09:48)
[2022-05-09] MEDS: ENOXAPARIN SOD 40 MG/0.4 ML SYRINGE SC SCH (09:49)
[2022-05-09] MEDS: CARVEDILOL 3.125 MG TAB PO SCH ×2 (09:49→21:54)
[2022-05-09] MEDS: MUPIROCIN 2% OINT 15gm or 22gm TOP SCH ×2 (09:50→21:55)
[2022-05-09] MEDS: INSULIN LANTUS (GLARGINE) 1 /0.01ml (100units/ml) SC SCH (10:30)
[2022-05-09 10:42] LABS: Basophils # (auto) 0.3 10 ^3/uL (0-0.2); Basophils % (auto) 3.5 % (0.0-2.0); Eosinophils # (auto) 0.2 10 ^3/uL (0-0.8); Eosinophils % (auto) 2.6 % (0.0-7.0); Hematocrit 43.1 % (36.0-46.0); Hemoglobin 14.4 g/dL (12.2-16.2); Lymphocytes # (auto) 1.6 10 ^3/uL (0.4-5.4); Lymphocytes % (auto) 18.5 % (10.0-50.0); Mean Corpuscular Hemoglobin 31.9 pg (28.0-32.0); Mean Corpuscular Hgb Conc. 33.4 g/dL (32.0-36.0); Mean Corpuscular Volume 95.5 fL (80.0-100.0); Monocytes % (auto) 11.7 % (0.0-12.0); Neutrophils # (auto) 5.3 10 ^3/uL (1.6-8.6); Neutrophils % (auto) 63.7 % (37.0-80.0); Nucleated Red Blood Cells % 0.2 %; Red Blood Cells 4.51 10^6/uL (4.0-5.20); Red Cell Distribution Width 13.4 % (11.8-14.3); White Blood Cell 8.4 10^3/uL (4.4-10.8)
[2022-05-09 11:10] LABS: Albumin 2.8 g/dL (3.4-5.0); Calcium 9.4 mg/dL (8.5-10.1); Potassium 4.4 mmol/L (3.5-5.1)
[2022-05-09 11:15] LABS: BUN/Creatinine Ratio 9.5; Bilirubin, Total 1.2 mg/dL (0.2-1.0); Total Protein 6.2 g/dL (6.4-8.2)
[2022-05-09] MEDS: LORazepam 2MG/ML-1ML VIAL IV PRN (11:36)
[2022-05-09 12:34] VITALS: BP 132/92
[2022-05-09] MEDS ORDERED: diphenhdrAMINE HCL 50 MG/1 ML VL IV ONE (13:15)
[2022-05-09 16:36] VITALS: BP 118/62
[2022-05-09] MEDS: diphenhdrAMINE HCL 50 MG/1 ML VL IV PRN (21:57)
[2022-05-09 22:00] VITALS: BP 109/62
[2022-05-10 05:00] VITALS: BP 122/59
[2022-05-10] MEDS: InsuLIN REG 1unit/0.01ml Soln (100units/ml) SC SCH ×4 (05:54→22:00)
[2022-05-10] MEDS: ACCU-CHEK COMFORT CURVE STRIP VI SCH ×4 (05:55→17:55)
[2022-05-10] MEDS: EMPAGLIFLOZIN 10 MG TAB PO SCH (06:05)
[2022-05-10 06:44] LABS: Basophils # (auto) 0.1 10 ^3/uL (0-0.2); Basophils % (auto) 1.4 % (0.0-2.0); Eosinophils # (auto) 0.3 10 ^3/uL (0-0.8); Eosinophils % (auto) 2.5 % (0.0-7.0); Hematocrit 42.7 % (36.0-46.0); Hemoglobin 13.7 g/dL (12.2-16.2); Lymphocytes # (auto) 2.4 10 ^3/uL (0.4-5.4); Lymphocytes % (auto) 23.6 % (10.0-50.0); Mean Corpuscular Hemoglobin 31.4 pg (28.0-32.0); Mean Corpuscular Hgb Conc. 32.2 g/dL (32.0-36.0); Mean Corpuscular Volume 97.6 fL (80.0-100.0); Monocytes % (auto) 9.9 % (0.0-12.0); Neutrophils # (auto) 6.3 10 ^3/uL (1.6-8.6); Neutrophils % (auto) 62.6 % (37.0-80.0); Nucleated Red Blood Cells % 0.1 %; Red Blood Cells 4.37 10^6/uL (4.0-5.20); Red Cell Distribution Width 13.8 % (11.8-14.3)
[2022-05-10 06:56] LABS: Potassium 4.8 mmol/L (3.5-5.1)
[2022-05-10 06:59] LABS: Albumin 2.7 g/dL (3.4-5.0); Calcium 9.8 mg/dL (8.5-10.1)
[2022-05-10 07:04] LABS: Bilirubin, Total 0.8 mg/dL (0.2-1.0); Total Protein 5.5 g/dL (6.4-8.2)
[2022-05-10] MEDS: Glucerna Carbsteady SHAKE Vanilla 8oz PO SCH ×2 (08:32→17:54)
[2022-05-10 09:00] VITALS: BP 122/56
[2022-05-10] MEDS: D5W 5% 1,000 ML IV SCH ×2 (11:45→17:56)
[2022-05-10] MEDS: MUPIROCIN 2% OINT 15gm or 22gm TOP SCH ×2 (12:07→22:26)
[2022-05-10 12:47] VITALS: BP 117/62
[2022-05-10] MEDS: cefTRIAXone 1GM/50ML D5W 50 ML IV SCH (13:38)
[2022-05-10] MEDS: ASPirin 81 mg TAB PO SCH (13:39)
[2022-05-10] MEDS: CARVEDILOL 3.125 MG TAB PO SCH ×2 (13:39→22:30)
[2022-05-10] MEDS: SACUBITRIL-VALSARTAN 24mg/26mg TAB PO SCH ×2 (13:39→22:26)
[2022-05-10] MEDS: FAMOTIDINE (10MG/ML) 2ML VL IV SCH (13:39)
[2022-05-10] MEDS: CLOPIDOGREL BISULFATE 75 MG TAB PO SCH (13:39)
[2022-05-10] MEDS: INSULIN LANTUS (GLARGINE) 1 /0.01ml (100units/ml) SC SCH (13:40)
[2022-05-10] MEDS: ENOXAPARIN SOD 40 MG/0.4 ML SYRINGE SC SCH (13:40)
[2022-05-10 17:00] VITALS: BP 140/76
[2022-05-10 22:00] VITALS: BP 113/67
[2022-05-11] MEDS: diphenhdrAMINE HCL 50 MG/1 ML VL IV PRN (00:51)
[2022-05-11 05:00] VITALS: BP_SYST 115; BP_SYST 96; BP_DIAS 52; BP_DIAS 85
[2022-05-11] MEDS: ACCU-CHEK COMFORT CURVE STRIP VI SCH ×4 (06:37→22:24)
[2022-05-11] MEDS: EMPAGLIFLOZIN 10 MG TAB PO SCH (06:38)
[2022-05-11] MEDS: InsuLIN REG 1unit/0.01ml Soln (100units/ml) SC SCH ×4 (06:42→22:00)
[2022-05-11 07:59] LABS: Basophils # (auto) 0.1 10 ^3/uL (0-0.2); Basophils % (auto) 0.7 % (0.0-2.0); Eosinophils # (auto) 0.1 10 ^3/uL (0-0.8); Hematocrit 43.3 % (36.0-46.0); Hemoglobin 13.9 g/dL (12.2-16.2); Lymphocytes # (auto) 1.6 10 ^3/uL (0.4-5.4); Mean Corpuscular Hgb Conc. 32.1 g/dL (32.0-36.0); Mean Corpuscular Volume 96.5 fL (80.0-100.0); Monocytes # (auto) 1.1 10 ^3/uL (0-1.3); Monocytes % (auto) 8.3 % (0.0-12.0); Neutrophils # (auto) 10.5 10 ^3/uL (1.6-8.6); Red Blood Cells 4.48 10^6/uL (4.0-5.20); Red Cell Distribution Width 13.9 % (11.8-14.3); White Blood Cell 13.5 10^3/uL (4.4-10.8)
[2022-05-11 08:17] LABS: BUN/Creatinine Ratio 10.4; Calcium 9.4 mg/dL (8.5-10.1)
[2022-05-11 08:30] VITALS: BP 100/51
[2022-05-11] MEDS: FAMOTIDINE (10MG/ML) 2ML VL IV SCH (08:46)
[2022-05-11] MEDS: ASPirin 81 mg TAB PO SCH (08:46)
[2022-05-11] MEDS: Glucerna Carbsteady SHAKE Vanilla 8oz PO SCH ×2 (08:46→18:00)
[2022-05-11] MEDS: CARVEDILOL 3.125 MG TAB PO SCH ×2 (08:49→22:00)
[2022-05-11] MEDS: SACUBITRIL-VALSARTAN 24mg/26mg TAB PO SCH ×2 (08:50→22:39)
[2022-05-11] MEDS: CLOPIDOGREL BISULFATE 75 MG TAB PO SCH (08:50)
[2022-05-11] MEDS: ENOXAPARIN SOD 40 MG/0.4 ML SYRINGE SC SCH (08:51)
[2022-05-11] MEDS: MUPIROCIN 2% OINT 15gm or 22gm TOP SCH ×2 (08:51→22:24)
[2022-05-11] MEDS: INSULIN LANTUS (GLARGINE) 1 /0.01ml (100units/ml) SC SCH (08:53)
[2022-05-11 12:39] VITALS: BP 76/40
[2022-05-11] MEDS ORDERED: SODIUM CHLORIDE 0.9% 500 ML IV ONE (13:30)
[2022-05-11 15:52] VITALS: BP 97/56
[2022-05-11 20:03] VITALS: BP 112/58
[2022-05-11 21:54] VITALS: BP_SYST 115; BP_SYST 134; BP_DIAS 52; BP_DIAS 83
[2022-05-12] MEDS: HALOPERIDOL LACTATE 5 MG/ML INJ VIAL IM PRN ×2 (02:06→21:42)
[2022-05-12 05:00] VITALS: BP 99/48
[2022-05-12 05:58] LABS: BUN/Creatinine Ratio 14.1; Potassium 3.8 mmol/L (3.5-5.1)
[2022-05-12] MEDS: ACCU-CHEK COMFORT CURVE STRIP VI SCH ×4 (06:41→22:00)
[2022-05-12] MEDS: InsuLIN REG 1unit/0.01ml Soln (100units/ml) SC SCH ×4 (06:42→22:53)
[2022-05-12] MEDS: EMPAGLIFLOZIN 10 MG TAB PO SCH (06:42)
[2022-05-12] MEDS: Glucerna Carbsteady SHAKE Vanilla 8oz PO SCH ×2 (08:00→17:57)
[2022-05-12 09:00] VITALS: BP 102/61
[2022-05-12] MEDS: CARVEDILOL 3.125 MG TAB PO SCH ×2 (10:00→22:00)
[2022-05-12] MEDS: FAMOTIDINE (10MG/ML) 2ML VL IV SCH (10:32)
[2022-05-12] MEDS: ASPirin 81 mg TAB PO SCH (10:33)
[2022-05-12] MEDS: CLOPIDOGREL BISULFATE 75 MG TAB PO SCH (10:34)
[2022-05-12] MEDS: ENOXAPARIN SOD 40 MG/0.4 ML SYRINGE SC SCH (10:34)
[2022-05-12] MEDS: SACUBITRIL-VALSARTAN 24mg/26mg TAB PO SCH ×2 (10:34→22:00)
[2022-05-12] MEDS: MUPIROCIN 2% OINT 15gm or 22gm TOP SCH ×2 (10:35→22:00)
[2022-05-12] MEDS: INSULIN LANTUS (GLARGINE) 1 /0.01ml (100units/ml) SC SCH (10:41)
[2022-05-12 13:00] VITALS: BP 120/75
[2022-05-12 17:00] VITALS: BP 116/66
[2022-05-12 21:54] VITALS: BP 110/71
[2022-05-13] MEDS: IBUPROFEN 800 MG TAB PO PRN (04:19)
[2022-05-13 04:52] VITALS: BP 113/76
[2022-05-13 06:06] LABS: Basophils # (auto) 0.2 10 ^3/uL (0-0.2); Basophils % (auto) 2.4 % (0.0-2.0); Eosinophils # (auto) 0.2 10 ^3/uL (0-0.8); Eosinophils % (auto) 2.3 % (0.0-7.0); Hematocrit 46.5 % (36.0-46.0); Hemoglobin 15.2 g/dL (12.2-16.2); Lymphocytes # (auto) 1.6 10 ^3/uL (0.4-5.4); Lymphocytes % (auto) 22.3 % (10.0-50.0); Mean Corpuscular Hemoglobin 31.6 pg (28.0-32.0); Mean Corpuscular Hgb Conc. 32.7 g/dL (32.0-36.0); Mean Corpuscular Volume 96.4 fL (80.0-100.0); Monocytes # (auto) 0.8 10 ^3/uL (0-1.3); Monocytes % (auto) 11.5 % (0.0-12.0); Neutrophils # (auto) 4.4 10 ^3/uL (1.6-8.6); Neutrophils % (auto) 61.5 % (37.0-80.0); Nucleated Red Blood Cells % 0.2 %; Red Blood Cells 4.83 10^6/uL (4.0-5.20); Red Cell Distribution Width 13.5 % (11.8-14.3); White Blood Cell 7.1 10^3/uL (4.4-10.8)
[2022-05-13] MEDS: ACCU-CHEK COMFORT CURVE STRIP VI SCH ×4 (06:17→22:58)
[2022-05-13] MEDS: EMPAGLIFLOZIN 10 MG TAB PO SCH (06:18)
[2022-05-13] MEDS: InsuLIN REG 1unit/0.01ml Soln (100units/ml) SC SCH ×4 (06:18→23:03)
[2022-05-13 06:46] LABS: BUN/Creatinine Ratio 14.1; Calcium 9.4 mg/dL (8.5-10.1); Potassium 4.4 mmol/L (3.5-5.1)
[2022-05-13 09:00] VITALS: BP 95/57
[2022-05-13] MEDS: CLOPIDOGREL BISULFATE 75 MG TAB PO SCH (10:22)
[2022-05-13] MEDS: ASPirin 81 mg TAB PO SCH (10:24)
[2022-05-13] MEDS: ENOXAPARIN SOD 40 MG/0.4 ML SYRINGE SC SCH (10:28)
[2022-05-13] MEDS: Glucerna Carbsteady SHAKE Vanilla 8oz PO SCH ×2 (10:30→18:00)
[2022-05-13] MEDS: FAMOTIDINE (10MG/ML) 2ML VL IV SCH (10:30)
[2022-05-13] MEDS: SACUBITRIL-VALSARTAN 24mg/26mg TAB PO SCH ×2 (10:30→22:50)
[2022-05-13] MEDS: CARVEDILOL 3.125 MG TAB PO SCH ×2 (10:30→22:51)
[2022-05-13] MEDS: MUPIROCIN 2% OINT 15gm or 22gm TOP SCH ×2 (10:30→22:50)
[2022-05-13 12:40] VITALS: BP 111/57
[2022-05-13 16:02] VITALS: BP 104/65
[2022-05-13] MEDS: HALOPERIDOL LACTATE 5 MG/ML INJ VIAL IM PRN (20:13)
[2022-05-13 22:00] VITALS: BP 99/62
[2022-05-13] MEDS: diphenhdrAMINE HCL 50 MG/1 ML VL IV PRN (22:50)
[2022-05-14 00:08] VITALS: BP 121/73
[2022-05-14] MEDS: diphenhdrAMINE HCL 50 MG/1 ML VL IV PRN (04:46)
[2022-05-14 05:00] VITALS: BP 92/60
[2022-05-14] MEDS: InsuLIN REG 1unit/0.01ml Soln (100units/ml) SC SCH ×3 (06:25→17:00)
[2022-05-14] MEDS: EMPAGLIFLOZIN 10 MG TAB PO SCH (06:25)
[2022-05-14] MEDS: ACCU-CHEK COMFORT CURVE STRIP VI SCH ×3 (06:25→17:00)
[2022-05-14 06:36] LABS: Basophils # (auto) 0.2 10 ^3/uL (0-0.2); Basophils % (auto) 2.2 % (0.0-2.0); Eosinophils # (auto) 0.2 10 ^3/uL (0-0.8); Eosinophils % (auto) 1.6 % (0.0-7.0); Hematocrit 43.3 % (36.0-46.0); Lymphocytes % (auto) 19.9 % (10.0-50.0); Mean Corpuscular Hgb Conc. 32.4 g/dL (32.0-36.0); Mean Corpuscular Volume 95.6 fL (80.0-100.0); Monocytes # (auto) 1.1 10 ^3/uL (0-1.3); Monocytes % (auto) 10.6 % (0.0-12.0); Neutrophils # (auto) 6.6 10 ^3/uL (1.6-8.6); Neutrophils % (auto) 65.7 % (37.0-80.0); Nucleated Red Blood Cells % 0.1 %; Red Blood Cells 4.53 10^6/uL (4.0-5.20); Red Cell Distribution Width 13.7 % (11.8-14.3)
[2022-05-14 07:04] LABS: BUN/Creatinine Ratio 21.2; Calcium 9.3 mg/dL (8.5-10.1); Potassium 3.9 mmol/L (3.5-5.1)
[2022-05-14] MEDS: Glucerna Carbsteady SHAKE Vanilla 8oz PO SCH (08:00)
[2022-05-14 08:30] VITALS: BP 99/68
[2022-05-14] MEDS: CARVEDILOL 3.125 MG TAB PO SCH (10:55)
[2022-05-14] MEDS: MUPIROCIN 2% OINT 15gm or 22gm TOP SCH (10:55)
[2022-05-14] MEDS: SACUBITRIL-VALSARTAN 24mg/26mg TAB PO SCH (10:55)
[2022-05-14] MEDS: ENOXAPARIN SOD 40 MG/0.4 ML SYRINGE SC SCH (10:55)
[2022-05-14] MEDS: ASPirin 81 mg TAB PO SCH (11:05)
[2022-05-14] MEDS: FAMOTIDINE (10MG/ML) 2ML VL IV SCH (11:05)
[2022-05-14] MEDS: CLOPIDOGREL BISULFATE 75 MG TAB PO SCH (11:06)
[2022-05-14] MEDS ORDERED: CLOP75TA70 PO (12:04)
[2022-05-14] MEDS ORDERED: ASPI-325 PO (12:04)
[2022-05-14] MEDS ORDERED: EMPA1TAB PO (12:04)
[2022-05-14] MEDS ORDERED: CAR3125T PO (12:04)
[2022-05-14] MEDS ORDERED: SACU1TAB PO (12:04)
[2022-05-14 13:00] VITALS: BP 98/70
[2022-05-14 15:23] VITALS: BP 96/61
[2022-05-14 17:00] VITALS: BP 90/66
[2022-05-14] MEDS ORDERED: CLOP75TA28 PO (17:04)
== END 2022-05-14 17:40 | disposition home health service (06) | DRG 174 ==
LOC: ER 18:44 → TELE 22:03 → ICU WEST 22:50 → TELE-WESTW 05-02 19:50
PROVIDERS: ADMIT Internal Medicine; ATTEND Internal Medicine Pulmonary Disease
PROC: 4A023N7 Measurement of Cardiac Sampling and Pressure, Left Heart, Percutaneous Approach (ICD-10-PCS; 2022-04-26)
PROC: B2111ZZ Fluoroscopy of Multiple Coronary Arteries using Low Osmolar Contrast (ICD-10-PCS; 2022-04-26)
PROC: B2151ZZ Fluoroscopy of Left Heart using Low Osmolar Contrast (ICD-10-PCS; 2022-04-26)
PROC: 02713EZ Dilation of Coronary Artery, Two Arteries with Two Intraluminal Devices, Percutaneous Approach (ICD-10-PCS; principal; 2022-04-27)
PROC: 5A1955Z Respiratory Ventilation, Greater than 96 Consecutive Hours (ICD-10-PCS; 2022-04-27)
PROC: 0BH17EZ Insertion of Endotracheal Airway into Trachea, Via Natural or Artificial Opening (ICD-10-PCS; 2022-04-27)
PROC: 5A12012 Performance of Cardiac Output, Single, Manual (ICD-10-PCS; 2022-04-27)
DX: I21.3 ST elevation (STEMI) myocardial infarction of unspecified site (principal); J96.01 Acute respiratory failure with hypoxia; I46.9 Cardiac arrest, cause unspecified; N17.0 Acute kidney failure with tubular necrosis; R57.0 Cardiogenic shock; Z20.822 Contact with and (suspected) exposure to COVID-19; F15.10 Other stimulant abuse, uncomplicated; I44.7 Left bundle-branch block, unspecified; I25.119 Atherosclerotic heart disease of native coronary artery with unspecified angina pectoris; E87.20 Acidosis, unspecified; E11.9 Type 2 diabetes mellitus without complications; I11.0 Hypertensive heart disease with heart failure; I50.23 Acute on chronic systolic (congestive) heart failure; N28.0 Ischemia and infarction of kidney; I42.9 Cardiomyopathy, unspecified; E87.6 Hypokalemia; E87.0 Hyperosmolality and hypernatremia; G92.8 Other toxic encephalopathy; G93.1 Anoxic brain damage, not elsewhere classified; I47.20 Ventricular tachycardia, unspecified; Z79.02 Long term (current) use of antithrombotics/antiplatelets; Z79.82 Long term (current) use of aspirin
CPT/HCPCS: 36415; 36600; 70450; 71045; 72192; 74018; 80048; 80053; 80061; 80069; 80074; 80202; 80307; 82040; 82565; 82805; 82947; 82962; 83036; 83605; 83735; 83880; 84100; 84443; 84484; 85025; 85379; 85610; 85730; 87040; 87070; 87077; 87081; 87086; 87088; 87186; 87205; 87426; 92610; 92928; 92950; 93005; 93306; 93458; 93970; 94002; 94003; 96361; 96374; 99152; 99153; 99291; A4618; C1874; C9113; G0378; J0696; J1815; J2001; J2250; J2405; J3480; J3490; J7060; P9047; Q9956

== ENCOUNTER 2022-06-06 14:26 | Inpatient (IN) | payer MEDICAID ==
[~2022-06-06] VITALS: Ht 167.6 cm; Wt 71.7 kg
[~2022-06-06 14:26] MED LIST: ASPI-325 PO; CAR3125T PO; CLOP75TA28 PO; CLOP75TA70 PO; EMPA1TAB PO; SACU1TAB PO
[2022-06-06 14:58] LABS: Basophils # (auto) 0 10 ^3/uL (0-0.2); Basophils % (auto) 0.4 % (0.0-2.0); Eosinophils # (auto) 0.2 10 ^3/uL (0-0.8); Eosinophils % (auto) 2.7 % (0.0-7.0); Hematocrit 43.1 % (36.0-46.0); Hemoglobin 15.4 g/dL (12.2-16.2); Lymphocytes # (auto) 2.3 10 ^3/uL (0.4-5.4); Lymphocytes % (auto) 30.7 % (10.0-50.0); Mean Corpuscular Hemoglobin 33.9 pg (28.0-32.0); Mean Corpuscular Hgb Conc. 35.8 g/dL (32.0-36.0); Mean Corpuscular Volume 94.9 fL (80.0-100.0); Monocytes # (auto) 0.6 10 ^3/uL (0-1.3); Monocytes % (auto) 7.8 % (0.0-12.0); Neutrophils # (auto) 4.4 10 ^3/uL (1.6-8.6); Neutrophils % (auto) 58.4 % (37.0-80.0); Nucleated Red Blood Cells % 0.1 %; Red Blood Cells 4.54 10^6/uL (4.0-5.20); Red Cell Distribution Width 14.2 % (11.8-14.3); White Blood Cell 7.5 10^3/uL (4.4-10.8)
[2022-06-06 15:20] LABS: Albumin 3.8 g/dL (3.4-5.0); BUN/Creatinine Ratio 24.5; Calcium 9.4 mg/dL (8.5-10.1); Magnesium 2.5 mg/dL (1.6-2.6); Potassium 3.9 mmol/L (3.5-5.1)
[2022-06-06 15:23] LABS: Bilirubin, Total 0.6 mg/dL (0.2-1.0); Total Protein 7.5 g/dL (6.4-8.2)
[2022-06-06] MEDS ORDERED: NITROGLYCERIN 0.4 MG SL TAB SL PRN (19:45)
[2022-06-06] MEDS ORDERED: MORPHINE SULFATE INJ 2 MG/ml SYRG IV PRN (19:45)
[2022-06-06] MEDS ORDERED: DEXTROSE (50%) 50ML SYRG IV PRN (20:00)
[2022-06-06] MEDS ORDERED: NTG 0.1MG/HR TOPICAL PATCH TD ONE (20:00)
[2022-06-06 20:27] LABS: Cholesterol 114 mg/dL (< 200); Triglycerides 137 mg/dL (< 150)
[2022-06-06 20:29] LABS: HDL Cholesterol 42 mg/dL (40-59); LDL Cholesterol 58 mg/dL (< 100)
[2022-06-06 20:41] LABS: Partial Thromboplastin Time 28.8 sec (24.6-33.4)
[2022-06-06] MEDS: ACCU-CHEK COMFORT CURVE STRIP VI SCH (22:00)
[2022-06-06] MEDS: SACUBITRIL-VALSARTAN 24mg/26mg TAB PO SCH (23:18)
[2022-06-06] MEDS: CARVEDILOL 3.125 MG TAB PO SCH (23:25)
[2022-06-06] MEDS: InsuLIN REG 1unit/0.01ml Soln (100units/ml) SC SCH (23:25)
[2022-06-07 02:15] VITALS: BP 128/79
[2022-06-07 02:19] VITALS: BP 128/79
[2022-06-07 05:00] VITALS: BP 119/78
[2022-06-07] MEDS: ACCU-CHEK COMFORT CURVE STRIP VI SCH ×2 (06:12→12:39)
[2022-06-07] MEDS: InsuLIN REG 1unit/0.01ml Soln (100units/ml) SC SCH ×2 (06:15→12:43)
[2022-06-07 06:29] LABS: Basophils # (auto) 0.1 10 ^3/uL (0-0.2); Basophils % (auto) 1.5 % (0.0-2.0); Eosinophils # (auto) 0.3 10 ^3/uL (0-0.8); Eosinophils % (auto) 3.5 % (0.0-7.0); Hematocrit 41.7 % (36.0-46.0); Hemoglobin 14.6 g/dL (12.2-16.2); Lymphocytes # (auto) 2.9 10 ^3/uL (0.4-5.4); Lymphocytes % (auto) 33.8 % (10.0-50.0); Mean Corpuscular Hemoglobin 33.3 pg (28.0-32.0); Monocytes # (auto) 0.6 10 ^3/uL (0-1.3); Monocytes % (auto) 7.4 % (0.0-12.0); Neutrophils # (auto) 4.6 10 ^3/uL (1.6-8.6); Neutrophils % (auto) 53.8 % (37.0-80.0); Nucleated Red Blood Cells % 0.1 %; Red Blood Cells 4.39 10^6/uL (4.0-5.20); Red Cell Distribution Width 14.3 % (11.8-14.3); White Blood Cell 8.5 10^3/uL (4.4-10.8)
[2022-06-07] MEDS ORDERED: TRAZ50TA2 PO (06:31)
[2022-06-07] MEDS ORDERED: ATOR10TA PO (06:31)
[2022-06-07] MEDS ORDERED: HYDRX10T PO (06:31)
[2022-06-07 06:35] LABS: Albumin 3.5 g/dL (3.4-5.0); Calcium 9.2 mg/dL (8.5-10.1); Potassium 3.7 mmol/L (3.5-5.1)
[2022-06-07 06:37] LABS: BUN/Creatinine Ratio 26.2
[2022-06-07 06:59] LABS: Bilirubin, Total 0.6 mg/dL (0.2-1.0); Total Protein 6.7 g/dL (6.4-8.2)
[2022-06-07] MEDS ORDERED: EMPAGLIFLOZIN 10 MG TAB PO SCH (07:00)
[2022-06-07 08:50] VITALS: BP 120/78
[2022-06-07] MEDS: SACUBITRIL-VALSARTAN 24mg/26mg TAB PO SCH (09:22)
[2022-06-07] MEDS: CARVEDILOL 3.125 MG TAB PO SCH (09:22)
[2022-06-07] MEDS ORDERED: ENOXAPARIN SOD 40 MG/0.4 ML SYRINGE SC SCH (10:00)
[2022-06-07] MEDS ORDERED: ASPirin-EC 81 mg tab PO SCH (10:00)
[2022-06-07 12:56] VITALS: BP 122/74
[2022-06-07] MEDS ORDERED: ATORVASTATIN 20 MG TAB PO SCH (22:00)
[2022-06-07] MEDS ORDERED: METOPROLOL TARTRATE 50 MG TAB PO SCH (22:00)
[2022-06-07] MEDS ORDERED: MUPIROCIN 2% OINT 15gm or 22gm FOR MRSA NARES EACHNOSTRI SCH (22:00)
[2022-06-08] MEDS ORDERED: LISINOPRIL 20 MG TAB PO SCH (10:00)
== END 2022-06-07 18:39 | disposition left against medical advice (07) | DRG 198 ==
LOC: ER 14:26 → TELE 19:52 → TELE-WESTW 23:53
PROVIDERS: ADMIT Registered Nurse; ATTEND Family Medicine
DX: I25.10 Atherosclerotic heart disease of native coronary artery without angina pectoris (principal); I50.42 Chronic combined systolic (congestive) and diastolic (congestive) heart failure; Z86.74 Personal history of sudden cardiac arrest; I11.0 Hypertensive heart disease with heart failure; E11.9 Type 2 diabetes mellitus without complications; E78.5 Hyperlipidemia, unspecified; Z20.822 Contact with and (suspected) exposure to COVID-19; F15.10 Other stimulant abuse, uncomplicated; I44.7 Left bundle-branch block, unspecified; I25.5 Ischemic cardiomyopathy; Z53.29 Procedure and treatment not carried out because of patient's decision for other reasons; Z80.3 Family history of malignant neoplasm of breast; Z83.3 Family history of diabetes mellitus; I25.2 Old myocardial infarction; Z87.891 Personal history of nicotine dependence; Z95.5 Presence of coronary angioplasty implant and graft; Z71.51 Drug abuse counseling and surveillance of drug abuser
CPT/HCPCS: 36415; 71046; 80053; 80061; 82962; 83036; 83735; 84443; 84484; 84702; 85025; 85610; 85730; 87081; 87426; 93005; G0378; J1815

== ENCOUNTER 2023-02-21 07:46 | Emergency (ER) | payer MEDICAID ==
[~2023-02-21] VITALS: Ht 167.6 cm; Wt 74.2 kg
[~2023-02-21 07:46] MED LIST changes: +ATOR10TA PO; +HYDRX10T PO; +TRAZ-227 PO
[2023-02-21 08:33] VITALS: BP 115/85; PULSE 114; RESP 18; TEMP 98; O2SAT 99
[2023-02-21] MEDS ORDERED: TRIA0.02 TOP (09:01)
[2023-02-21] MEDS ORDERED: HYDR50CA PO (09:01)
[2023-02-21] MEDS ORDERED: METH4PAK PO (09:01)
== END 2023-02-21 09:07 | disposition home or self-care (01) ==
LOC: ER 07:46
DX: S90.862A Insect bite (nonvenomous), left foot, initial encounter (principal); S90.861A Insect bite (nonvenomous), right foot, initial encounter; S50.862A Insect bite (nonvenomous) of left forearm, initial encounter; S50.861A Insect bite (nonvenomous) of right forearm, initial encounter; L08.9 Local infection of the skin and subcutaneous tissue, unspecified; I10 Essential (primary) hypertension; E11.9 Type 2 diabetes mellitus without complications; E78.5 Hyperlipidemia, unspecified; Z87.891 Personal history of nicotine dependence; Z79.82 Long term (current) use of aspirin; Z79.01 Long term (current) use of anticoagulants; Z79.899 Other long term (current) drug therapy; W57.XXXA Bitten or stung by nonvenomous insect and other nonvenomous arthropods, initial encounter; Y93.89 Activity, other specified; Y92.89 Other specified places as the place of occurrence of the external cause; Y99.8 Other external cause status

== ENCOUNTER 2023-04-05 22:24 | Emergency (ER) | payer MEDICAID ==
[~2023-04-05 22:24] MED LIST changes: +HYDR50CA PO; +METH4PAK PO; +TRIA0.02 TOP
== END 2023-04-06 00:47 | disposition left against medical advice (07) ==
LOC: ER 22:24
DX: K13.79 Other lesions of oral mucosa (principal); Z53.21 Procedure and treatment not carried out due to patient leaving prior to being seen by health care provider

== ENCOUNTER 2024-03-10 10:42 | Emergency (ER) | payer MEDICAID ==
[~2024-03-10] VITALS: Ht 167.6 cm; Wt 70.0 kg
[~2024-03-10 10:42] MED LIST changes: -CAR3125T PO; +CARV-214 PO
[2024-03-10 11:44] LABS: Urine Bacteria FEW /hpf (None Seen); Urine Blood 2+ /uL (Negative); Urine Clarity Clear (Clear); Urine Color Yellow (Yellow); Urine Mucus FEW (None Seen); Urine Protein, UAD TRACE (Negative); Urine Specific Gravity 1.026 (1.001-1.035); Urine Urobilinogen 2 mg/dL (Negative); Urine WBC 2 /hpf (0 - 5)
[2024-03-10 12:26] LABS: Chloride 106 mmol/L (98-107); Sodium 137 mmol/L (136-145)
[2024-03-10 12:27] LABS: Anion Gap 6 (5-15); Calcium 9.7 mg/dL (8.7-10.4); Carbon Dioxide 25 mmol/L (20-31)
[2024-03-10 12:30] LABS: Basophils # (auto) 0.1 10 ^3/uL (0-0.2); Basophils % (auto) 0.5 % (0.0-2.0); Eosinophils # (auto) 0.1 10 ^3/uL (0-0.8); Eosinophils % (auto) 0.9 % (0.0-7.0); Hematocrit 39.5 % (36.0-46.0); Hemoglobin 13.6 g/dL (12.2-16.2); Lymphocytes # (auto) 3.3 10 ^3/uL (0.4-5.4); Lymphocytes % (auto) 21.5 % (10.0-50.0); Mean Corpuscular Hemoglobin 32.2 pg (28.0-32.0); Mean Corpuscular Hgb Conc. 34.4 g/dL (32.0-36.0); Mean Corpuscular Volume 93.5 fL (80.0-100.0); Monocytes % (auto) 6.8 % (0.0-12.0); Neutrophils # (auto) 10.7 10 ^3/uL (1.6-8.6); Neutrophils % (auto) 70.3 % (37.0-80.0); Platelet Count (auto) 315 10^3/uL (140-450); Red Blood Cells 4.22 10^6/uL (4.0-5.20); Red Cell Distribution Width 12.4 % (11.8-14.3); White Blood Cell 15.2 10^3/uL (4.4-10.8)
[2024-03-10 12:32] LABS: BUN/Creatinine Ratio 15.1 (10.0-20.0); Blood Urea Nitrogen 14 mg/dL (9-23); Glucose 204 mg/dL (74-106)
[2024-03-10] MEDS ORDERED: CEPH500C PO (13:40)
[2024-03-10 13:48] VITALS: BP 109/67; PULSE 93; RESP 16; O2SAT 100
== END 2024-03-10 13:53 | disposition home or self-care (01) ==
LOC: ER 10:42
DX: N93.9 Abnormal uterine and vaginal bleeding, unspecified (principal); N39.0 Urinary tract infection, site not specified; R22.1 Localized swelling, mass and lump, neck; I10 Essential (primary) hypertension; E11.9 Type 2 diabetes mellitus without complications; E78.5 Hyperlipidemia, unspecified; Z79.82 Long term (current) use of aspirin; Z79.84 Long term (current) use of oral hypoglycemic drugs; Z79.899 Other long term (current) drug therapy
CPT/HCPCS: 36415; 76830; 76856; 80048; 81001; 85025